=== PATIENT | male | born 1955 ===

== ENCOUNTER 2020-07-12 14:44 | Inpatient (IN) | payer MEDICARE, BC ==
[2020-07-12] MEDS: ASPIRIN 325 MG TAB PO SCH (18:08)
[2020-07-12] MEDS: lamoTRIgine 100 MG TAB PO SCH (20:36)
--- NOTE | 2020-07-12 21:15 | P.CNNES ---
History of Present Illness Consult date: 07/12/20 Requesting physician: Wil Berman Reason for Consult: Seizure, rule out CVA History of Present Illness: Patient is a 65-year-old male, with history of hypertension, essential tremor, history of AVM, treated by surgery in 2019 came as a transfer from [facility] at 6 PM for possible stroke versus seizure. Patient states that this morning he woke up at 5 AM as usual. He has scheduled a breakfast with his uncle and they met in [place] at 9:30 AM. Patient was eating breakfast with his cousin/friend, went he felt strange sensation in his whole body, almost like an "aura", then he felt leaning to the left side, like as if he was in a slow motion or floating, and remembers his arms going up. The next thing he remembers is still seated in the chair, and his uncle holding him on the side, and the oral pathologist was also around, asking if he was okay. He was out for about and a couple minutes. I spoke to patient's uncle on the phone, who told me that patient certainly started leading on the left, hips is both arms went up and he was about to fall and that he started shaking quite severely. The seizure lasted for about 1-1-1/2 minutes. No tongue bite or loss of control of urine. However when he came to, he was having difficulty expressing himself, he tried to say something and different words would come out. Patient's uncle said that he was talking gibberish. He could hear them, but he could not express himself. Speech difficulty lasted for about 45 minutes and then started clearing up. While he was being taken to the hospital by EMS, patient has no focal weakness but he was confused and just talked nonsense and was not following commands. No vomiting. He did not complain of chest pain. Vital signs on arrival blood pressure at [facility] 181/97, pulse rate 85, temperature 99.6 Patient is currently on Lamictal 200 mg twice a day. Patient also on Inderal LA 120 mg probably for essential tremor, aspirin 325 mg, mesalamine 1.2 g 4 tablets daily. Norvasc 10 mg daily. Patient's blood pressure on arrival at [facility] showed blood pressure 203/147, heart rate 18, saturation 98% and temperature 97.7. The blood pressure came down to 183/100 and but then went up to 205/107. Patient's blood tests BNP 51 which is normal. Troponin negative. CRP 0.20, magnesium 1.8, CK- MB is normal. Lactic acid 1.3 CPK 69, which is normal. Covod testing negative D-dimer 0.55, PTT 23.4 INR 0.98 CBC is normal. Chest x-ray showed no acute abnormality. CT head showed nonspecific low attenuation focus in the right frontal subcortical white matter. MRI may help clarify. CTA of the head with IV contrast revealed intraluminal thrombus in the vertical right petrous ICA. Nonspecific low attenuation focus in the right frontal subcortical white matter. MRI may help clarify. CTA of the neck with IV contrast revealed No stenosis, occlusion or dissection. Patient has history of hypertension, seizure disorder and essential tremor for last 5 years. 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 De Oliveira at [facility] in 2008. Patient states that he had 1 seizure that led to the diagnosis of AVM. After that he never had any seizure. Patient has been maintained on Lamictal for seizure prophylaxis. Patient follows up with Dr. Tra Lares in [place]. Patient denies diabetes tobacco use and drinks alcohol once in a while. On asking detailed history about alcoholism, patient states that he drinks 2 or 3 drinks of Vodka, with tonic about once a week. Patient states that he is noticing a headache, but vision is good. He is feeling slow getting out of bed. His shaking has got worse since this happened. Review of Systems As above in detail. Patient denies any chest pain, shortness of breath, wheezing or cough. He does have tremors. All other 14 points of review of systems were reviewed and unremarkable. Past Medical History Past Medical History: Seizure Disorder, Syncope Additional Past Medical History / Comment(s): colitis, essential tremor History of Any Multi-Drug Resistant Organisms: None Reported Additional Past Surgical History / Comment(s): Removal of malformation from the left occipital lobe by Dr. De Oliveira at [facility]. Past Anesthesia/Blood Transfusion Reactions: Unable to Obtain Past Psychological History: No Psychological Hx Reported Smoking Status: Never smoker Additional Past Alcohol Use History / Comment(s): Patient states he drinks socially, but not daily - Past Family History Mother Family Medical History: Cancer, Congestive Heart Failure (CHF) Father Additional Family Medical History / Comment(s): in a plane crash at 40 years old. Medications and Allergies Home Medications Medication Instructions Recorded Confirmed Type Aspirin EC [Ecotrin] 325 mg PO QID PRN 07/12/20 07/12/20 History Mesalamine 2.4 gm PO AC-BID 07/12/20 07/12/20 History Propranolol HCl [Propranolol HCl 120 mg PO DAILY 07/12/20 07/12/20 History ER] lamoTRIgine [LaMICtal] 200 mg PO BID 07/12/20 07/12/20 History Allergies Allergy/AdvReac Type Severity Reaction Status Date / Time No Known Allergies Allergy Verified 07/12/20 18:06 Physical Examination - Vital Signs Vital Signs: Vital Signs Temp Pulse Resp BP Pulse Ox 07/12/20 18:16 85 16 07/12/20 16:44 99.6 F 85 16 181/97 97 Intake and Output 07/12/20 07/12/20 07/12/20 06:59 14:59 22:59 Other: # Voids 1 Weight 78.9 kg On examination patient is an elderly male, very pleasant, in no acute distress. Patient is alert awake oriented times place and person. Speech and language functions are normal. Attention, concentration and fund of knowledge adequate. Cranial examination pupils are round and reactive to light, visual mcguire are full to confrontation, extraocular muscles are intact with no nystagmus. Face is completely symmetric, tongue protrudes the midline. Palatal elevation sensation normal, hearing and shoulder shrug normal. Facial sensation is normal. On muscle strength testing there is no pronator drift and the strength is completely normal in arms and legs distally and proximally. Reflexes are 1+ and plantars are downgoing. Sensory to touch is equal. No neglect on double simultaneous ablation. No ataxia for [id number] testing. He does have tremors of outstretched hands. Tone and bulk of muscles normal. Gait normal. On general resolution there is no carotid bruit or murmur, peripheral pulses present. Abdomen soft nontender. Patient does have tremors of head, as well as outstretched hands. Assessment and Plan Assessment: * 65-year-old male who had a seizure followed by expressive aphasia, that resolved in 45 minutes. Differential diagnosis is between breakthrough seizure versus TIA. Patient states that he had 2 or 3 drinks of Vodka, the day prior, which may be contributing although he clearly declines regular alcoholism. * History of seizure related to AVM, that required surgical resection/clipping in 2019. Patient states he has not had seizures since the surgery. * CTA of the head showed possibility of intraluminal thrombus in the vertical petrous right ICA. * Hypertension * Mild alcoholism. * Essential tremors Plan: * Patient will undergo MRI of the brain to evaluate for acute stroke. * We will also check MRA of the brain and to follow-up on intraluminal thrombus noted in the right ICA. * Patient will be started on Plavix 75 mg daily along with aspirin pending above test results. * Telemetric monitoring. * Fasting a.m. lipid panel, hemoglobin A1c. * EEG to evaluate for interictal epileptiform activity. * Continue Lamictal 200 mg twice a day. We will check Lamictal level. * 2-D echo with bubble study to rule out PFO. * Patient was informed of [place] state law of no driving unless seizure free for 6 months, climbing ladders, operate dangerous machinery or unsupervised swimming. * Vascular surgery also on board. Discussed with IM and vascular surgery. * Dr. Menjivar will follow up patient in the morning. Time with Patient: Greater than 30
--- NOTE | 2020-07-12 21:27 | P.HPIM ---
History of Present Illness H&P Date: 07/12/20 Chief Complaint: Seizures Patient is a 65-year-old male with a known history of seizure disorder and history of removal of malformation from left occipital lobe due to intracranial bleed and 2009 at [facility] initially presented to [facility] due to possible seizure activity. Patient states that he got up today morning and was having breakfast with his uncle. Patient states that he felt started feeling strange and tilting towards left side and his balance was off and blacked out. Patient was caught up by the territory sales manager and had him sit up in a chair at. Patient lost consciousness for about 1 to 2 minutes and by the time ambulance came he was awake and was getting better. His voice was slightly at the time. No history of prior CVA. Patient also history of essential tremor currently on Inderal for that. No focal weakness. There was some left facial droop according to the [facility] ER physician but completely resolved. Confusion much improved and patient is awake alert and oriented x3 currently. Laboratory data including CBC, CMP and urinalysis was done at [facility] were reviewed. Magnesium within normal limits. Troponin within normal limits and CPK not elevated. CT head showed nonspecific attenuation right frontal white matter. No acute changes were noted. Patient had CT angiogram of the head and neck showed right ICA petrous segment intraluminal thrombus. MRI was recommended. Patient was transferred to [facility] for further evaluation by neurology. I did discuss with ER physician from [facility]. patient was hypertensive on admission with blood pressure 203/147 and was given hydralazine. Currently blood pressure is 187 x 97 pulse 85 and respirations 16 and saturating at 97% on room air. Patient denied any recent seizure activity. Review of Systems Constitutional: Patient denies any fever or chills . No generalized weakness or weight loss. Abdomen: Patient denied nausea vomiting and diarrhea and abdominal pain. Cardiovascular: Patient denies any chest pain or short of breath no palpitations. Respiratory: patient denied any cough or sputum production. No shortness of breath Neurologic: Patient denied any numbness or tingling headache. Musculoskeletal: Patient denies any complaints of joint swelling or deformity. Skin: Negative Psychiatric: Negative Endocrine: No heat or cold intolerance. No recent weight gain. Genitourinary: No dysuria or hematuria. All other 14 point ROS negative except the above Past Medical History Past Medical History: Seizure Disorder, Syncope Additional Past Medical History / Comment(s): colitis, essential tremor History of Any Multi-Drug Resistant Organisms: None Reported Additional Past Surgical History / Comment(s): Removal of malformation from the left occipital lobe by Dr. De Oliveira at [facility]. Past Anesthesia/Blood Transfusion Reactions: Unable to Obtain Past Psychological History: No Psychological Hx Reported Smoking Status: Never smoker Additional Past Alcohol Use History / Comment(s): Patient states he drinks socially, but not daily - Past Family History Mother Family Medical History: Cancer, Congestive Heart Failure (CHF) Father Additional Family Medical History / Comment(s): in a plane crash at 40 years old. Medications and Allergies Home Medications Medication Instructions Recorded Confirmed Type Aspirin EC [Ecotrin] 325 mg PO QID PRN 07/12/20 07/12/20 History Mesalamine 2.4 gm PO AC-BID 07/12/20 07/12/20 History Propranolol HCl [Propranolol HCl 120 mg PO DAILY 07/12/20 07/12/20 History ER] lamoTRIgine [LaMICtal] 200 mg PO BID 07/12/20 07/12/20 History Allergies Allergy/AdvReac Type Severity Reaction Status Date / Time No Known Allergies Allergy Verified 07/12/20 18:06 Physical Exam Vitals: Vital Signs Temp Pulse Resp BP Pulse Ox 07/12/20 18:16 85 16 07/12/20 16:44 99.6 F 85 16 181/97 97 Intake and Output 07/12/20 07/12/20 07/12/20 06:59 14:59 22:59 Other: # Voids 1 Weight 78.9 kg PHYSICAL EXAMINATION: Patient is lying in the bed comfortably, no acute distress, awake alert and oriented.. HEENT: Normocephalic. Neck is supple. Pupils reactive. Nostrils clear. Oral cavity is moist. Ears reveal no drainage. Neck reveals no JVD, carotid bruits, or thyromegaly. CHEST EXAMINATION: Trachea is central. Symmetrical expansion. Lung mcguire clear to auscultation and percussion. CARDIAC: Normal S1, S2 with no gallops. No murmurs ABDOMEN: Soft. Bowel sounds normal. No organomegaly. No abdominal bruits. Extremities: reveal no edema. No clubbing or cyanosis Neurologically awake, alert, oriented x3 with well-coordinated movements. No focal deficits noted Skin: No rash or skin lesions. Psychiatric: Coperative. Nonsuicidal Musculoskeletal: No joint swelling or deformity. Normal range of motion. Thrombosis Risk Factor Assmnt - DVT/VTE Prophylaxis DVT/VTE Prophylaxis: Pharmacologic Prophylaxis ordered - Choose All That Apply Each Factor Represents 1 point: Obesity (BMI >25) Each Risk Factor Represents 2 Points: Age 61-74 years Thrombosis Risk Factor Assessment Total Risk Factor Score: 3 Thrombosis Risk Factor Assessment Level: Moderate Risk Assessment and Plan Assessment: Seizures possible breakthrough. Rule out acute CVA Due to slurred speech and questionable left facial droop while he was in the ambulance. Resolved now.. History of removal of malformation from left occipital lobe due to intracranial bleed in 2008 at [facility]. Seizure disorder currently on antiepileptic medication at home. Hypertensive urgency on admission essential tremors currently on Inderal at home. DVT prophylaxis with heparin subcu Plan: Patient will be continued on telemetry monitoring. Laboratory data and CT of head, CTA head and neck done at [facility] were reviewed. Patient will be started on aspirin 325 mg daily and will check lipid profile. Neurology was consulted. MRI of the brain was ordered to rule out acute CVA. Seizure precautions and fall precautions. Start back on home dose of antiepileptic medications in the form of Lamictal. Further recommendations based on the clinical course. Time with Patient: Greater than 30
[2020-07-12] MEDS: CLOPIDOGREL 75 MG TAB PO SCH (22:14)
[2020-07-12] MEDS: amLODIPine 10 MG TAB PO SCH (22:14)
[2020-07-13] MEDS ORDERED: HEPARIN SODIUM,PORCINE 5,000 UNIT/ML 1 ML VIAL SQ SCH
[2020-07-13] MEDS ORDERED: ACETAMINOPHEN TAB 325 MG TAB PO PRN (03:45)
[2020-07-13 07:31] LABS: Basophils # (A) 0.1 k/uL (0-0.2); Basophils % (A) 1 %; Eosinophils # (A) 0.2 k/uL (0-0.7); Eosinophils % (A) 2 %; HCT 40.4 % (39.0-53.0); HGB 13.2 gm/dL (13.0-17.5); Lymphocytes % (A) 20 %; MCH 31.8 pg (25.0-35.0); MCHC 32.6 g/dL (31.0-37.0); MCV 97.5 fL (80.0-100.0); Mean Platelet Volume 6.7; Monocytes # (A) 0.8 k/uL (0-1.0); Monocytes % (A) 8 %; Neutrophils # (A) 6.7 k/uL (1.3-7.7); Neutrophils % (A) 67 %; Platelet Count 283 k/uL (150-450); RBC 4.14 m/uL (4.30-5.90); RDW 13.6 % (11.5-15.5)
[2020-07-13 07:42] LABS: African American GFR (CKD) >90 (>60 ml/min/1.73 sqM); Anion Gap 11 mmol/L; Blood Urea Nitrogen 9 mg/dL (9-20); Calcium 9.5 mg/dL (8.4-10.2); Carbon Dioxide 24 mmol/L (22-30); Chloride 102 mmol/L (98-107); Cholesterol 198 mg/dL (<200); Glucose 102 mg/dL (74-99); HDL Cholesterol 58 mg/dL (40-60); LDL Cholesterol,Calculated 106 mg/dL (0-99); Non-African American GFR(CKD) >90 (>60 ml/min/1.73 sqM); Potassium 3.5 mmol/L (3.5-5.1); Sodium 137 mmol/L (137-145); Triglycerides 172 mg/dL (<150)
[2020-07-13] MEDS: ASPIRIN 325 MG TAB PO SCH (08:51)
[2020-07-13] MEDS: CLOPIDOGREL 75 MG TAB PO SCH (08:52)
[2020-07-13] MEDS: BALSALAZIDE DISODIUM 750 MG CAPSULE PO SCH ×3 (08:53→20:48)
[2020-07-13] MEDS: lamoTRIgine 100 MG TAB PO SCH ×2 (08:53→20:46)
[2020-07-13] MEDS: PROPRANOLOL LA 60 MG CAP.SA.24H PO SCH (10:12)
[2020-07-13] MEDS ORDERED: POTASSIUM CHLORIDE ER 20 MEQ TAB.ER PO STA (11:44)
--- NOTE | 2020-07-13 11:45 | P.GSCN ---
History of Present Illness Consult date: 07/13/20 History of present illness: Marty is a 65-year-old male with a seizure history and history of removal of malformation of his left occipital lobe due to intracranial bleed in 2008. He presented to [facility] 2 days ago stating that he was feeling strange and was having issues with his balance being off. Per their reports he had left facial droop that had resolved as well as confusion at that time. Imaging reports reveal hypertension on admission to [place] and a CT angiogram showing right ICA petrous segment thrombus without evidence of stenosis, occlusion or dissection in the extracranial carotid system. He was transferred to [facility] last evening. Discussion was had by myself with the nurse and the neurologist, at the time of evaluation and transferred to our hospital, the patient was asymptomatic. I am seeing the patient this morning he remains asymptomatic and essentially states he is ready to go home Review of Systems 14 point review systems performed. Pertinent positives and negatives per the HPI Past Medical History Past Medical History: Seizure Disorder, Syncope Additional Past Medical History / Comment(s): colitis, essential tremor History of Any Multi-Drug Resistant Organisms: None Reported Additional Past Surgical History / Comment(s): Removal of malformation from the left occipital lobe by Dr. De Oliveira at [facility]. Past Anesthesia/Blood Transfusion Reactions: Unable to Obtain Past Psychological History: No Psychological Hx Reported Smoking Status: Never smoker Additional Past Alcohol Use History / Comment(s): Patient states he drinks socially, but not daily - Past Family History Mother Family Medical History: Cancer, Congestive Heart Failure (CHF) Father Additional Family Medical History / Comment(s): in a plane crash at 40 years old. Medications and Allergies Home Medications Medication Instructions Recorded Confirmed Type Aspirin EC [Ecotrin] 325 mg PO QID PRN 07/12/20 07/12/20 History Mesalamine 2.4 gm PO AC-BID 07/12/20 07/12/20 History Propranolol HCl [Propranolol HCl 120 mg PO DAILY 07/12/20 07/12/20 History ER] lamoTRIgine [LaMICtal] 200 mg PO BID 07/12/20 07/12/20 History Allergies Allergy/AdvReac Type Severity Reaction Status Date / Time No Known Allergies Allergy Verified 07/12/20 18:06 Surgical - Exam Vital Signs Temp Pulse Resp BP Pulse Ox 99.6 F 85 16 181/97 97 07/12/20 16:44 07/12/20 16:44 07/12/20 16:44 07/12/20 16:44 07/12/20 16:44 genitals a pleasant and cooperative male in no acute distress. HEENT is normocephalic, atraumatic, extraocular motion intact. Neck is supple, trachea is midline. No obvious bruits noted. Heart is regular. Lungs are clear bilaterally. Abdomen is soft, nontender nondistended. Extremity show no clubbing, cyanosis or edema. Patient has slight essential tremor. Normal mood and affect. Cranial nerves II through XII grossly intact at this time Results imaging reports reviewed from outside hospital and per the HPI - Labs 07/13/20 06:50 07/13/20 06:50 Abnormal Lab Results - Last 24 Hours (Table) 07/13/20 07/13/20 Range/Units 06:50 06:50 RBC 4.14 L (4.30-5.90) m/uL Creatinine 0.60 L (0.66-1.25) mg/dL Glucose 102 H (74-99) mg/dL Triglycerides 172 H (<150) mg/dL LDL Cholesterol, Calc 106 H (0-99) mg/dL Diabetes panel 07/13/20 Range/Units 06:50 Sodium 137 (137-145) mmol/L Potassium 3.5 (3.5-5.1) mmol/L Chloride 102 (98-107) mmol/L Carbon Dioxide 24 (22-30) mmol/L BUN 9 (9-20) mg/dL Creatinine 0.60 L (0.66-1.25) mg/dL Glucose 102 H (74-99) mg/dL Calcium 9.5 (8.4-10.2) mg/dL Triglycerides 172 H (<150) mg/dL HDL Cholesterol 58 (40-60) mg/dL Thyroid panel 07/13/20 Range/Units 06:50 TSH 1.030 (0.465-4.680) mIU/L Calcium panel 07/13/20 Range/Units 06:50 Calcium 9.5 (8.4-10.2) mg/dL Pituitary panel 07/13/20 Range/Units 06:50 Sodium 137 (137-145) mmol/L Potassium 3.5 (3.5-5.1) mmol/L Chloride 102 (98-107) mmol/L Carbon Dioxide 24 (22-30) mmol/L BUN 9 (9-20) mg/dL Creatinine 0.60 L (0.66-1.25) mg/dL Glucose 102 H (74-99) mg/dL Calcium 9.5 (8.4-10.2) mg/dL TSH 1.030 (0.465-4.680) mIU/L Adrenal panel 07/13/20 Range/Units 06:50 Sodium 137 (137-145) mmol/L Potassium 3.5 (3.5-5.1) mmol/L Chloride 102 (98-107) mmol/L Carbon Dioxide 24 (22-30) mmol/L BUN 9 (9-20) mg/dL Creatinine 0.60 L (0.66-1.25) mg/dL Glucose 102 H (74-99) mg/dL Calcium 9.5 (8.4-10.2) mg/dL Assessment and Plan Assessment: right petrous ICA thrombus per report history of seizures Plan: at this time per the reports there is no evidence significant extracranial thrombus. Discussion was had with the neurologist last night regarding the possible need for neuro intervention. At the time of evaluationby our hospital staff the patient was asymptomatic and therefore no further transfer or evaluation was deemed necessary which is reasonable. We are awaiting further MRA and MRI today for further recommendations and to reconfirm other diagnoses. Continue dual antiplatelet therapy. If no significant extracranial carotid artery stenosis, the patient may be seen in follow-up or with his primary care physician. If there is evidence of stroke/TIA on imaging along with extracranial pathology, would be a candidate for intervention and would follow up accordingly with me in the office. This is all discussed with the patient seemingly understands.
--- NOTE | 2020-07-13 11:53 | ECHOF ---
Referral Reason:Right ICA intraluminal thrombus MEASUREMENTS -------- HEIGHT: 167.6 cm WEIGHT: 78.5 kg BP: 152/92 RVIDd: 3.3 cm (< 3.3) IVSd: 1.4 cm (0.6 - 1.1) LVIDd: 4.2 cm (3.9 - 5.3) LVPWd: 1.3 cm (0.6 - 1.1) IVSs: 1.9 cm LVIDs: 3.0 cm LVPWs: 1.7 cm LA Diam: 3.4 cm (2.7 - 3.8) Ao Diam: 3.7 cm (2.0 - 3.7) AV Cusp: 2.2 cm (1.5 - 2.6) MV EXCURSION: 13.189 mm (> 18.000) MV EF SLOPE: 62 mm/s (70 - 150) EPSS: 0.5 cm MV E Alvaro: 0.78 m/s MV DecT: 316 ms MV A Alvaro: 0.83 m/s MV E/A Ratio: 0.94 RAP: 5.00 mmHg RVSP: 27.81 mmHg FINDINGS -------- Sinus rhythm. This was a technically adequate study. The left ventricular size is normal. There is moderate concentric left ventricular hypertrophy. O verall left ventricular systolic function is normal with, an EF between 60 - 65 %. The right ventricle is mildly enlarged. The left atrium is normal in size. The right atrium is normal in size. Contrast study was performed with 2 iv injections of 8 ccs of agitated normal saline, at rest, and wi th cough. No bubble crossing. No PFO noted Interatrial and interventricular septum intact. The aortic valve is trileaflet and appears structurally normal. There is trace to mild mitral regurgitation. Mild tricuspid regurgitation present. Right ventricular systolic pressure is normal at < 35 mmHg. There is no pulmonic regurgitation present. The aortic root size is normal. IVC Not well visulized. There is no pericardial effusion. CONCLUSIONS -------- 1. The left ventricular size is normal. 2. There is moderate concentric left ventricular hypertrophy. 3. Overall left ventricular systolic function is normal with, an EF between 60 - 65 %. 4. The right ventricle is mildly enlarged. 5. Contrast study was performed with 2 iv injections of 8 ccs of agitated normal saline, at rest, and with cough. 6. No bubble crossing. No PFO noted 7. Interatrial and interventricular septum intact. 8. There is trace to mild mitral regurgitation. 9. Mild tricuspid regurgitation present. 10. There is no pericardial effusion. CHANGE NUMBER OPERATOR: Jovana Roman RDCS
[2020-07-13] MEDS: amLODIPine 10 MG TAB PO SCH (13:10)
--- NOTE | 2020-07-13 16:37 | P.PN ---
Subjective Progress Note Date: 07/13/20 The patient is a 65-year-old male who is seen in neurologic follow-up on July 13, 2020, via teleneurology. The patient reports feeling fine today. He tells me about his recent episode. He describes a feeling of floating. He says that he then noted that he raised both of his arms, leaned to the left and then "everything went dark". The patient denies tongue biting and loss of bowel and bladder control. He says when he awoke he was unable to speak. He could hear what was being said to him and understandable was being said to him however was unable to get his words out. The patient has a history of seizures occurring prior to 2008. 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 He has continued on antiepileptic medications since that time, however has not had any further seizures. When thinking about his previous seizures, he says that they were very similar to this recent episode. The previous seizures were different in that they were longer lasting, otherwise they were the same. Objective - Vital Signs Vital signs: Vital Signs Temp 98.4 F 07/13/20 08:00 Pulse 64 07/13/20 14:00 Resp 16 07/13/20 14:00 BP 126/88 07/13/20 13:09 Pulse Ox 97 07/13/20 13:09 Intake & Output 07/12/20 07/13/20 07/13/20 18:59 06:59 18:59 Intake Total 100 600 Balance 100 600 Weight 78.9 kg 78.8 kg Intake: Oral 100 600 Other: # Voids 1 1 1 - Exam Gen.: The patient is reclining in the bed. He is well-nourished, well-developed and in no acute distress. HEENT: Head is atraumatic, normocephalic. Fundus not visualized. There is no scleral icterus. Mucous membranes are moist. Neurological examination Mental status: The patient is awake, alert and oriented 3. His speech is clear. There is no dysarthria or aphasia Cranial nerves: 2-12 grossly intact Motor: Patient is moving all 4 extremities without difficulties. - Labs CBC & Chem 7: 07/13/20 06:50 07/13/20 06:50 Labs: Abnormal Lab Results - Last 24 Hours (Table) 07/13/20 07/13/20 Range/Units 06:50 06:50 RBC 4.14 L (4.30-5.90) m/uL Creatinine 0.60 L (0.66-1.25) mg/dL Glucose 102 H (74-99) mg/dL Triglycerides 172 H (<150) mg/dL LDL Cholesterol, Calc 106 H (0-99) mg/dL Assessment and Plan Assessment: 1. Likely breakthrough seizure, as the patient describes his symptoms and they are almost exactly the same symptoms he has had with his previous seizures. 2. History of aneurysm clipping Plan: 1. Await MRI reports. At the time of this dictation, I am unable to visualize the MRI images 2. EEG, to be performed tomorrow. Because of the recent change in accessing the EMR, am unable to access/read EEGs from my remote system 3. May consider increasing patient's Lamictal dosing to 500 mg daily, however this is only one breakthrough seizure and so, may not be necessary Time with Patient: Less than 30 (spent 25 minutes with patient via teleneurology )
[2020-07-13 21:10] LABS: Hemoglobin A1C 5.5 % (4.0-6.0)
--- NOTE | 2020-07-13 22:28 | MR ---
EXAMINATION TYPE: MR angio head wo/neck wo/w con DATE OF EXAM: 07/13/2020 COMPARISON: None HISTORY: Seizure, R/O stroke, Hx of AVM CONTRAST: Standard multiplanar, multisequence MRI departmental protocol utilizing 7.5 mL intravenous Gadavist g adolinium contrast. There are 3-D post processed images. There is arterial flow in the anterior middle and posterior cerebral artery. There is arterial flow i n the vertebrobasilar artery system. There is bilateral arterial flow in the intracranial internal ca rotid arteries. There is no mass effect. There is no sign of intracranial aneurysm or neovascularity. I see no evidence of hemodynamic stenosis. There is arterial flow in the common internal and external carotid arteries. There is arterial flow i n both vertebral arteries. There is no evidence of carotid or vertebral artery aneurysm or dissection . There is decreased signal in the posterior aspect of the right carotid artery bifurcation. Be some flow related artifact and not any significant plaque formation. There is normal branching pattern of the great vessels on the aortic arch. There is arterial flow in both subclavian arteries. IMPRESSION: Negative MR angiogram of the neck. No evidence of any stenosis. Normal MR angiogram of the brain..
--- NOTE | 2020-07-13 22:35 | MR ---
EXAMINATION TYPE: MR brain wo con DATE OF EXAM: 07/13/2020 COMPARISON: None HISTORY: Seizure, R/O stroke, Hx of AVM Multiplanar multiecho imaging of the brain was performed without contrast. There is mild cerebral atrophy. There is no mass effect nor midline shift. There is no evidence of in tracranial acute hemorrhage. The diffusion images show some mixed signal in the left occipital lobe g ray and white matter. This area measures 4.5 x [address] brain of 07/12/2020 is reviewed and ther e is hypodensity in the jenkins-white matter of the left occipital lobe consistent with an old infarct. The findings today also consistent with old infarct. There is some loss of signal on the T2 images co nsistent with hemosiderin and hemorrhagic old component. There is intact brainstem. Cerebellum is intact. Sella turcica appears normal. Corpus callosum is int act. There is minimal mucosal thickening in the ethmoid air cells. On the T2 and FLAIR images there are some scattered white matter high signal foci in both cerebral he mispheres in the parietal and posterior frontal lobes. The largest in the right posterior frontal lob e measures 11 mm. Most of these lesions are less than 4 mm and total number is approximately 20. 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 No acute intracranial abnormality. Mild atrophy. White matter signal changes in both cerebral hemispheres consistent with chronic small vessel ischemia.
[2020-07-14] MEDS: lamoTRIgine 100 MG TAB PO SCH ×2 (08:20→21:21)
[2020-07-14] MEDS: CLOPIDOGREL 75 MG TAB PO SCH (08:20)
[2020-07-14] MEDS: BALSALAZIDE DISODIUM 750 MG CAPSULE PO SCH ×3 (08:20→21:20)
[2020-07-14] MEDS: ASPIRIN 325 MG TAB PO SCH (08:21)
[2020-07-14] MEDS: PROPRANOLOL LA 60 MG CAP.SA.24H PO SCH (08:21)
[2020-07-14] MEDS: amLODIPine 10 MG TAB PO SCH (08:21)
--- NOTE | 2020-07-15 01:09 | P.PN ---
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 Patient states that he got up today morning and was having breakfast with his uncle. Patient states that he felt started feeling strange and tilting towards left side and his balance was off and blacked out. Patient was caught up by the waiter/waitress dining car and had him sit up in a chair at. Patient lost consciousness for about 1 to 2 minutes and by the time ambulance came he was awake and was getting better. His voice was slightly at the time. No history of prior CVA. Patient also history of essential tremor currently on Inderal for that. No focal weakness. There was some left facial droop according to the [facility] ER physician but completely resolved. Confusion much improved and patient is awake alert and oriented x3 currently. Laboratory data including CBC, CMP and urinalysis was done at [facility] were reviewed. Magnesium within normal limits. Troponin within normal limits and CPK not elevated. CT head showed nonspecific attenuation right frontal white matter. No acute changes were noted. Patient had CT angiogram of the head and neck showed right ICA petrous segment intraluminal thrombus. MRI was recommended. Patient was transferred to [facility] for further evaluation by neurology. I did discuss with ER physician from [facility]. patient was hypertensive on admission with blood pressure 203/147 and was given hydralazine. Currently blood pressure is 187 x 97 pulse 85 and respirations 16 and saturating at 97% on room air. Patient denied any recent seizure activity. 07/13/2020 Patient is currently resting in the bed. No complaints of headache. No further episodes of seizures. Patient is being continued antiepileptic medications. Dose increased as per neurology recommendations. Patient was seen by vascular surgery due to right petrous ICA thrombus in the CT angiogram. Patient does not have any neurological abnormality pertaining to the thrombus. Continued on dual antiplatelet therapy and awaiting MRA/MRI report. . Denied any complaints of chest pain. No cough or sputum production. Current medications reviewed. Objective - Vital Signs Vital signs: Vital Signs Temp 98.7 F 07/13/20 19:35 Pulse 68 07/13/20 19:35 Resp 17 02/13/21 19:35 BP 138/88 07/13/20 19:35 Pulse Ox 97 07/13/20 19:35 Intake & Output 07/13/20 07/13/20 07/14/20 06:59 18:59 06:59 Intake Total 100 1260 Balance 100 1260 Weight 78.8 kg Intake: Oral 100 1260 Other: Voiding Method Toilet # Voids 1 2 1 - Exam PHYSICAL EXAMINATION: Patient is lying in the bed comfortably, no acute distress, awake alert and oriented.. HEENT: Normocephalic. Neck is supple. Pupils reactive. Nostrils clear. Oral cavi ty is moist. Ears reveal no drainage. Neck reveals no JVD, carotid bruits, or thyromegaly. CHEST EXAMINATION: Trachea is central. Symmetrical expansion. Lung mcguire clear to auscultation and percussion. CARDIAC: Normal S1, S2 with no gallops. No murmurs ABDOMEN: Soft. Bowel sounds normal. No organomegaly. No abdominal bruits. Extremities: reveal no edema. No clubbing or cyanosis Neurologically awake, alert, oriented x3 with well-coordinated movements. No focal deficits noted Skin: No rash or skin lesions. Psychiatric: Coperative. Nonsuicidal Musculoskeletal: No joint swelling or deformity. Normal range of motion. - Labs CBC & Chem 7: 07/13/20 06:50 07/13/20 06:50 Labs: Abnormal Lab Results - Last 24 Hours (Table) 07/13/20 07/13/20 Range/Units 06:50 06:50 RBC 4.14 L (4.30-5.90) m/uL Creatinine 0.60 L (0.66-1.25) mg/dL Glucose 102 H (74-99) mg/dL Triglycerides 172 H (<150) mg/dL LDL Cholesterol, Calc 106 H (0-99) mg/dL Assessment and Plan Assessment: Seizures possible breakthrough. Rule out acute CVA Due to slurred speech and questionable left facial droop while he was in the ambulance. Resolved now.. 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 No evidence of neurologic deficits. 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 Seizure disorder currently on antiepileptic medication at home. Hypertensive urgency on admission essential tremors currently on Inderal at home. DVT prophylaxis with heparin subcu Plan: Patient will be continued on telemetry monitoring. Patient will be continued dual antiplatelet therapy. Continue with antiepileptic medications. Neurology and vascular surgery is on board. Follow-up with MRI/MRA of the brain.Start back on home dose of antiepileptic medications in the form of Lamictal. Further recommendations based on the clinical course. Time with Patient: Greater than 30
--- NOTE | 2020-07-15 01:11 | P.PN ---
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 Patient states that he got up today morning and was having breakfast with his uncle. Patient states that he felt started feeling strange and tilting towards left side and his balance was off and blacked out. Patient was caught up by the waiter/waitress buffet and had him sit up in a chair at. Patient lost consciousness for about 1 to 2 minutes and by the time ambulance came he was awake and was getting better. His voice was slightly at the time. No history of prior CVA. Patient also history of essential tremor currently on Inderal for that. No focal weakness. There was some left facial droop according to the [facility] ER physician but completely resolved. Confusion much improved and patient is awake alert and oriented x3 currently. Laboratory data including CBC, CMP and urinalysis was done at [facility] were reviewed. Magnesium within normal limits. Troponin within normal limits and CPK not elevated. CT head showed nonspecific attenuation right frontal white matter. No acute changes were noted. Patient had CT angiogram of the head and neck showed right ICA petrous segment intraluminal thrombus. MRI was recommended. Patient was transferred to [facility] for further evaluation by neurology. I did discuss with ER physician from [facility]. patient was hypertensive on admission with blood pressure 203/147 and was given hydralazine. Currently blood pressure is 187 x 97 pulse 85 and respirations 16 and saturating at 97% on room air. Patient denied any recent seizure activity. 07/13/2020 Patient is currently resting in the bed. No complaints of headache. No further episodes of seizures. Patient is being continued antiepileptic medications. Dose increased as per neurology recommendations. Patient was seen by vascular surgery due to right petrous ICA thrombus in the CT angiogram. Patient does not have any neurological abnormality pertaining to the thrombus. Continued on dual antiplatelet therapy and awaiting MRA/MRI report. . Denied any complaints of chest pain. No cough or sputum production. 07/14/2020 Patient had MRI/MRA showed negative angiogram of the neck and brain. No evidence of any stenosis. MRI of the brain showed evidence of old occipital left lobe hemorrhagic infarct. No acute intracranial abnormality. Mild atrophy. White matter signal changes in both cerebral hemispheres consistent with chronic small vessel ischemic disea se. Patient is getting EEG today. Continued on dual antiplatelet therapy. Anticipate discharge in the next 24 hours once cleared by neurology. Current medications reviewed. Objective - Vital Signs Vital signs: Vital Signs Temp 98.2 F 07/14/20 17:03 Pulse 65 07/14/20 17:03 Resp 16 07/14/20 17:03 BP 137/81 07/14/20 17:03 Pulse Ox 97 07/14/20 17:03 Intake & Output 07/13/20 07/14/20 07/14/20 18:59 06:59 18:59 Intake Total 1260 1160 Output Total 300 Balance 1260 860 Weight 78.5 kg Intake: Oral 1260 1160 Output: Urine 300 Other: Voiding Method Toilet Toilet # Voids 2 1 2 - Exam PHYSICAL EXAMINATION: Patient is lying in the bed comfortably, no acute distress, awake alert and oriented.. HEENT: Normocephalic. Neck is supple. Pupils reactive. Nostrils clear. Oral cavity is moist. Ears reveal no drainage. Neck reveals no JVD, carotid bruits, or thyromegaly. CHEST EXAMINATION: Trachea is central. Symmetrical expansion. Lung mcguire clear to auscultation and percussion. CARDIAC: Normal S1, S2 with no gallops. No murmurs ABDOMEN: Soft. Bowel sounds normal. No organomegaly. No abdominal bruits. Extremities: reveal no edema. No clubbing or cyanosis Neurologically awake, alert, oriented x3 with well-coordinated movements. No focal deficits noted Skin: No rash or skin lesions. Psychiatric: Coperative. Nonsuicidal Musculoskeletal: No joint swelling or deformity. Normal range of motion. - Labs CBC & Chem 7: 07/13/20 06:50 07/13/20 06:50 Assessment and Plan Assessment: Seizures possible breakthrough. Ruled out acute CVA Due to slurred speech and questionable left facial droop while he was in the ambulance. Resolved now.. 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 No evidence of neurologic deficits. 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 Seizure disorder currently on antiepileptic medication at home. Hypertensive urgency on admission essential tremors currently on Inderal at home. DVT prophylaxis with heparin subcu Plan: Patient will be continued on telemetry monitoring. Patient will be continued dual antiplatelet therapy. Continue with antiepileptic medications. Neurology and vascular surgery is on board. MRI/MRA of the brain report above.Start back on home dose of antiepileptic medications in the form of Lamictal. Further recommendations based on the clinical course. Time with Patient: Greater than 30
[2020-07-15 08:20] LABS: Basophils # (A) 0.1 k/uL (0-0.2); Basophils % (A) 1 %; Eosinophils # (A) 0.3 k/uL (0-0.7); Eosinophils % (A) 3 %; HCT 43.2 % (39.0-53.0); HGB 14.1 gm/dL (13.0-17.5); Lymphocytes # (A) 1.6 k/uL (1.0-4.8); Lymphocytes % (A) 16 %; MCH 32.1 pg (25.0-35.0); MCHC 32.6 g/dL (31.0-37.0); MCV 98.5 fL (80.0-100.0); Mean Platelet Volume 6.9; Monocytes # (A) 0.6 k/uL (0-1.0); Monocytes % (A) 6 %; Neutrophils # (A) 7.1 k/uL (1.3-7.7); Neutrophils % (A) 72 %; Platelet Count 337 k/uL (150-450); RBC 4.39 m/uL (4.30-5.90); RDW 13.6 % (11.5-15.5)
[2020-07-15 08:32] LABS: African American GFR (CKD) >90 (>60 ml/min/1.73 sqM); Anion Gap 12 mmol/L; Blood Urea Nitrogen 7 mg/dL (9-20); Carbon Dioxide 29 mmol/L (22-30); Chloride 100 mmol/L (98-107); Glucose 138 mg/dL (74-99); Non-African American GFR(CKD) >90 (>60 ml/min/1.73 sqM); Potassium 4.4 mmol/L (3.5-5.1); Sodium 141 mmol/L (137-145)
[2020-07-15] MEDS: CLOPIDOGREL 75 MG TAB PO SCH (09:21)
[2020-07-15] MEDS: amLODIPine 10 MG TAB PO SCH (09:21)
[2020-07-15] MEDS: ASPIRIN 325 MG TAB PO SCH (09:21)
[2020-07-15] MEDS: lamoTRIgine 100 MG TAB PO SCH (09:21)
[2020-07-15] MEDS: PROPRANOLOL LA 60 MG CAP.SA.24H PO SCH (09:22)
[2020-07-15] MEDS: BALSALAZIDE DISODIUM 750 MG CAPSULE PO SCH (09:22)
[2020-07-15 09:26] VITALS: BP 133/60; PULSE 63; RESP 16; TEMP 97.3
--- NOTE | 2020-07-15 12:09 | P.DS ---
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 Patient states that he got up today morning and was having breakfast with his uncle. Patient states that he felt started feeling strange and tilting towards left side and his balance was off and blacked out. Patient was caught up by the script worker and had him sit up in a chair at. Patient lost consciousness for about 1 to 2 minutes and by the time ambulance came he was awake and was getting better. His voice was slightly at the time. No history of prior CVA. Patient also history of essential tremor currently on Inderal for that. No focal weakness. There was some left facial droop according to the [facility] ER physician but completely resolved. Confusion much improved and patient is awake alert and oriented x3 currently. Laboratory data including CBC, CMP and urinalysis was done at [facility] were reviewed. Magnesium within normal limits. Troponin within normal limits and CPK not elevated. CT head showed nonspecific attenuation right frontal white matter. No acute changes were noted. Patient had CT angiogram of the head and neck showed right ICA petrous segment intraluminal thrombus. MRI was recommended. Patient was transferred to [facility] for further evaluation by neurology. I did discuss with ER physician from [facility]. patient was hypertensive on admission with blood pressure 203/147 and was given hydralazine. Currently blood pressure is 187 x 97 pulse 85 and respirations 16 and saturating at 97% on room air. Patient denied any recent seizure activity. 07/13/2020 Patient is currently resting in the bed. No complaints of headache. No further episodes of seizures. Patient is being continued antiepileptic medications. Dose increased as per neurology recommendations. Patient was seen by vascular surgery due to right petrous ICA thrombus in the CT angiogram. Patient does not have any neurological abnormality pertaining to the thrombus. Continued on dual antiplatelet therapy and awaiting MRA/MRI report. . Denied any complaints of chest pain. No cough or sputum production. 07/14/2020 Patient had MRI/MRA showed negative angiogram of the neck and brain. No evidence of any stenosis. MRI of the brain showed evidence of old occipital left lobe hemorrhagic infarct. No acute intracranial abnormality. Mild atrophy. White matter signal changes in both cerebral hemispheres consistent with chronic small vessel ischemic disease. Patient is getting EEG today. Continued on dual antiplatelet therapy. Anticipate discharge in the next 24 hours once cleared by neurology. 07/15/2020 Patient appears to have old hemorrhage an MRI, patient may not require any anticoagulation or antiplatelet therapy patient usually uses aspirin for pain which asked him to discontinue and only use Tylenol for pain. I do not have any EEG reports. Patient is insisting on discharge because of which I'll increase the dose of the Lamictal to find it daily and will be discharged with close follow-up with his neurologist and primary care doctor in the [facility]. PHYSICAL EXAMINATION: GENERAL: The patient is alert and oriented x3, not in any acute distress. Well developed, well nourished. Does have mild essential tremor HEENT: Pupils are round and equally reacting to light. EOMI. No scleral icterus. No conjunctival pallor. Normocephalic, atraumatic. No pharyngeal erythema. No thyromegaly. CARDIOVASCULAR: S1 and S2 present. No murmurs, rubs, or gallops. PULMONARY: Chest is clear to auscultation, no wheezing or crackles. ABDOMEN: Soft, nontender, nondistended, normoactive bowel sounds. No palpable organomegaly. MUSCULOSKELETAL: No joint swelling or deformity. EXTREMITIES: No cyanosis, clubbing, or pedal edema. NEUROLOGICAL: Gross neurological examination did not reveal any focal deficits. SKIN: No rashes. Assessment and Plan Assessment: Seizures possible breakthrough. Ruled out acute CVA Due to slurred speech and questionable left facial droop while he was in the ambulance. Resolved now.. MRA did show some old possible hemorrhage no acute stroke Suspected right petrous ICA thrombus on the CT angiogram. No evidence of neurologic deficits. 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 Seizure disorder currently on antiepileptic medication dose is being increased Hypertensive urgency on admission , patient probably has essential hypertension is being discharged on Norvasc essential tremors currently on Inderal . Plan - Discharge Summary Discharge Rx Participant: Yes New Discharge Prescriptions: New lamoTRIgine [LaMICtal] 500 mg PO DAILY #30 tab Continue Propranolol HCl [Propranolol HCl ER] 120 mg PO DAILY Mesalamine 2.4 gm PO AC-BID Discontinued lamoTRIgine [LaMICtal] 200 mg PO BID Aspirin EC [Ecotrin] 325 mg PO QID PRN PRN Reason: Headache Discharge Medication List Mesalamine 2.4 gm PO AC-BID 07/12/20 [History] Propranolol HCl [Propranolol HCl ER] 120 mg PO DAILY 07/12/20 [History] lamoTRIgine [LaMICtal] 500 mg PO DAILY #30 tab 07/15/20 [Rx] Follow up Appointment(s)/Referral(s): Shahrzad South DO [STAFF PHYSICIAN] - As Needed Discharge Disposition: HOME SELF-CARE
--- NOTE | 2020-07-15 13:38 | P.PN ---
Subjective Progress Note Date: 07/15/20 Principal diagnosis: ICA thrombus Patient was seen and examined sitting up in his bed. He states he's feeling very well today. States he's feeling better than he has the last couple days. Denies any weakness in his upper or lower extremities. Denies any focal deficits including visual changes or speech changes. MRA of the neck shows no stenosis MRA of brain no acute findings. MRI of brain shows old left occipital infarct with no acute findings. Objective - Vital Signs Vital signs: Vital Signs Temp 97.3 F L 07/15/20 08:00 Pulse 63 07/15/20 08:00 Resp 16 07/15/20 08:00 BP 133/60 07/15/20 08:00 Pulse Ox 97 07/15/20 08:00 Intake & Output 07/14/20 07/15/20 07/15/20 18:59 06:59 18:59 Intake Total 1340 240 Output Total 300 Balance 1040 240 Weight 78.7 kg Intake: Oral 1340 240 Output: Urine 300 Other: Voiding Method Toilet Toilet # Voids 2 1 - Exam General appearance: The patient is alert, oriented, in no acute distress. HET: Head is normocephalic and atraumatic. Pupils are equal and reactive. Neck: Supple without lymphadenopathy. Trachea midline. Heart: S1 S2. Regular rate and rhythm. Lungs: No crackles or wheezes are heard. Abdomen: Soft, nontender, nondistended. Extremities: Normal skin color and turgor. No cyanosis, rash, ulceration, clubbing, or edema. Radial and pedal pulses are 2/4 bilaterally. Neurological: No focal deficits. Alert and oriented 3. Strength and sensation are grossly intact. - Labs CBC & Chem 7: 07/15/20 07:49 07/15/20 07:49 Labs: Abnormal Lab Results - Last 24 Hours (Table) 07/15/20 Range/Units 07:49 BUN 7 L (9-20) mg/dL Glucose 138 H (74-99) mg/dL Assessment and Plan Assessment: 1. Right petrous ICA thrombus per report 2. History of seizures Plan: 1. Supportive care 2. MRI and MRA reviewed with no acute findings 3. Continue dual antiplatelet therapy 4. Patient may follow-up with Dr. South in the office in 1-2 weeks 5. Outpatient follow-up with patient's neurologist The above dictated assessment and findings were discussed with Dr. South. The impression and plan of care have been directed as dictated.
--- NOTE | 2020-07-15 15:10 | EEG ---
ELECTROENCEPHALOGRAM REPORT DATE OF SERVICE: 07/14/2020. CLINICAL HISTORY: This is a 65-year-old gentleman that presented to the hospital with seizure-like episode. The patient has an old left occipital infarct. This video EEG is obtained to evaluate for seizure and epileptiform activity. Relevant medication: Lamictal. EEG TYPE: EEG type is a routine 21 channel EEG is performed with video using the 10/20 electrode placement system. DESCRIPTION: Wakefulness and drowsiness are obtained. During wakefulness, there is a posterior dominant rhythm of low to moderate voltage, well modulated of 9-10 hertz. During drowsiness, there is slowing in attenuation of the background activity. There is no physiological stage II sleep seen. There is no focal slowing seen. Interictal and ictal: None. ACTIVATION PROCEDURE: Photic stimulation did not evoke a posterior driving response. Hyperventilation is not performed. CLINICAL INTERPRETATION: This is a normal routine EEG. There are no focal slowing, epileptiform discharges or seizure on the EEG. Clinical correlation is recommended. MOHSEN / PEEN: [id number] / ILENE
== END 2020-07-15 13:43 | disposition home or self-care (01) | DRG 101 ==
LOC: 3SCARD 17:57
PROVIDERS: ADMIT Internal Medicine; ATTEND Internal Medicine
DX: G40.909 Epilepsy, unspecified, not intractable, without status epilepticus (principal); R47.01 Aphasia; G25.0 Essential tremor; F10.20 Alcohol dependence, uncomplicated; I16.0 Hypertensive urgency; I10 Essential (primary) hypertension; R29.810 Facial weakness; Z79.82 Long term (current) use of aspirin; Z79.899 Other long term (current) drug therapy; Z82.49 Family history of ischemic heart disease and other diseases of the circulatory system; Z86.73 Personal history of transient ischemic attack (TIA), and cerebral infarction without residual deficits; Z86.79 Personal history of other diseases of the circulatory system; R47.81 Slurred speech; Z20.822 Contact with and (suspected) exposure to COVID-19
CPT/HCPCS: 70544; 70549; 70551; 80048; 80061; 80175; 82607; 82747; 83036; 84443; 85025; 93306; 95816